=== PATIENT | male | born 1955 | race African-American/Black ===

== ENCOUNTER 2019-03-28 12:59 | Emergency (ER) | payer OTHER ==
[~2019-03-28] VITALS: Ht 172.7 cm; Wt 78.0 kg
[2019-03-28] MEDS ORDERED: SODIUM CHLORIDE 0.9% 1,000 ML IV ONE (14:49)
[2019-03-28] MEDS ORDERED: ASPIRIN 81MG TABLET PO ONE (15:00)
[2019-03-28 15:14] LABS: BASOPHILS % 0.8 % (0.0-2.0); HEMATOCRIT. 42.3 % (42.0-52.0); HEMOGLOBIN. 13.8 g/dL (14.0-18.0); LYMPHOCYTES % 34.6 % (20.0-50.0); MEAN CORPUSCULAR HEMOGLOBIN 29.8 pg (28.0-32.0); MEAN CORPUSCULAR VOLUME 91.1 fL (80.0-94.0); MONOCYTES % 11.3 % (2.0-8.0); NEUTROPHILS % 50.3 % (40.0-76.0); PLATELET 202 x1000/uL (130-400); RED BLOOD CELL COUNT 4.64 mill/uL (4.7-6.1); RED CELL DISTRIBUTION WIDTH 12.4 % (11.6-14.6)
[2019-03-28 15:17] LABS: CHLORIDE 109 mEq/L (98-107)
[2019-03-28 15:19] LABS: INR 1.1
[2019-03-28 18:02] VITALS: BP 130/79
== END 2019-03-28 18:14 | disposition home or self-care (01) ==
LOC: ER 12:59
DX: R07.89 Other chest pain (principal); R55 Syncope and collapse; Z90.49 Acquired absence of other specified parts of digestive tract
CPT/HCPCS: 36415; 71045; 80053; 84484; 85025; 85610; 93005; 96360; 99284; J7030

== ENCOUNTER 2021-06-14 12:22 | Emergency (ER) | payer MEDICARE, OTHER ==
[~2021-06-14] VITALS: Ht 172.7 cm; Wt 83.0 kg
[2021-06-14 21:15] LABS: HEMATOCRIT. 43.7 % (42.0-52.0); HEMOGLOBIN. 14.3 g/dL (14.0-18.0); LYMPHOCYTES % 45.1 % (20.0-50.0); MEAN CORPUSCULAR HEMOGLOBIN 29.8 pg (28.0-32.0); MEAN CORPUSCULAR VOLUME 91.4 fL (80.0-94.0); MEAN PLATELET VOLUME 10.2 fl (7.4-10.4); MONOCYTES % 11.8 % (2.0-8.0); NEUTROPHILS % 39.1 % (40.0-76.0); PLATELET 178 x1000/uL (130-400); RED BLOOD CELL COUNT 4.78 mill/uL (4.7-6.1); RED CELL DISTRIBUTION WIDTH 12.3 % (11.6-14.6)
[2021-06-14 21:21] LABS: CHLORIDE 112 mEq/L (98-107)
[2021-06-14] MEDS ORDERED: ATORVASTATIN CALCIUM 40MG TABLET PO STA (21:28)
[2021-06-14] MEDS ORDERED: ASPIRIN 81MG TABLET PO ONE (21:30)
[2021-06-14 21:33] LABS: *AMPHETAMINES SCREEN URINE NEGATIVE (NEGATIVE); *BARBITURATES SCREEN URINE NEGATIVE (NEGATIVE); *BENZODIAZEPINES SCREEN URINE NEGATIVE (NEGATIVE); *COCAINE SCREEN URINE NEGATIVE (NEGATIVE)
[2021-06-14 21:34] LABS: CANNABINOID URINE SCREEN NEGATIVE (NEGATIVE); METHADONE URINE SCREEN NEGATIVE (NEGATIVE); OPIATES URINE SCREEN NEGATIVE (NEGATIVE); PHENCYCLIDINE URINE SCREEN NEGATIVE (NEGATIVE)
[2021-06-15 02:04] VITALS: BP 153/89
== END 2021-06-15 02:17 | disposition short-term general hospital (02) ==
LOC: EDBD 14:44 → ER 14:44
DX: R07.89 Other chest pain (principal); I10 Essential (primary) hypertension; E78.5 Hyperlipidemia, unspecified; Z90.49 Acquired absence of other specified parts of digestive tract
CPT/HCPCS: 36415; 71045; 80053; 80305; 83880; 84484; 85025; 93005; 99285

== ENCOUNTER 2022-04-11 16:19 | Emergency (ER) | payer MEDICARE ==
[~2022-04-11] VITALS: Ht 170.2 cm; Wt 84.0 kg
[2022-04-11 16:21] VITALS: BP 138/99
[2022-04-11 17:17] LABS: BASOPHILS % 1.1 % (0.0-2.0); EOSINOPHILS % 4.2 % (0.0-5.0); HEMOGLOBIN. 13.6 g/dL (14.0-18.0); LYMPHOCYTES % 35.1 % (20.0-50.0); MEAN CORPUSCULAR HEMOGLOBIN 29.3 pg (28.0-32.0); MEAN CORPUSCULAR VOLUME 90.5 fL (80.0-94.0); MEAN PLATELET VOLUME 10.3 fl (7.4-10.4); NEUTROPHILS % 46.6 % (40.0-76.0); PLATELET 181 x1000/uL (130-400); RED BLOOD CELL COUNT 4.64 mill/uL (4.7-6.1)
[2022-04-11 17:28] LABS: CHLORIDE 109 mEq/L (98-107)
== END 2022-04-11 20:28 | disposition home or self-care (01) ==
LOC: ER 16:19
DX: R07.89 Other chest pain (principal); E78.00 Pure hypercholesterolemia, unspecified; Z90.49 Acquired absence of other specified parts of digestive tract
CPT/HCPCS: 36415; 71045; 80053; 83880; 84484; 85025; 93005; 99285

== ENCOUNTER 2023-01-10 07:33 | Emergency (ER) | payer MEDICARE, MEDICAID ==
[~2023-01-10] VITALS: Ht 177.8 cm; Wt 77.0 kg
[2023-01-10 07:48] VITALS: BP 146/116
[2023-01-10] MEDS ORDERED: ACETAMINOPHEN 325MG TABLET PO ONE (08:00)
[2023-01-10] MEDS ORDERED: METH-653 MT (09:18)
[2023-01-10] MEDS ORDERED: IBUP-2029 MT (09:18)
[2023-01-10] MEDS ORDERED: KETOROLAC 30MG/ML VIAL IM ONE (09:30)
== END 2023-01-10 11:31 | disposition home or self-care (01) ==
LOC: ER 07:33
DX: S33.5XXA Sprain of ligaments of lumbar spine, initial encounter (principal); E78.00 Pure hypercholesterolemia, unspecified; Z90.49 Acquired absence of other specified parts of digestive tract; W01.0XXA Fall on same level from slipping, tripping and stumbling without subsequent striking against object, initial encounter; Y93.89 Activity, other specified; Y92.89 Other specified places as the place of occurrence of the external cause; Y99.8 Other external cause status
CPT/HCPCS: 70450; 72131; 96372; 99285; J1885

== ENCOUNTER 2024-05-08 16:44 | Inpatient (IN) | payer MEDICARE, MEDICAID ==
[~2024-05-08] VITALS: Ht 170.2 cm; Wt 82.6 kg
[~2024-05-08 16:44] MED LIST: IBUP-2029 MT; METH-653 MT
[2024-05-08 19:25] LABS: BASOPHILS % 0.6 % (0.0-2.0); EOSINOPHILS % 1.3 % (0.0-5.0); HEMOGLOBIN. 12.8 g/dL (14.0-18.0); MEAN CORPUSCULAR HEMOGLOBIN 29.7 pg (28.0-32.0); MEAN CORPUSCULAR HGB CONC 32.9 g/dL (31.0-37.0); MEAN CORPUSCULAR VOLUME 90.3 fL (80.0-94.0); MEAN PLATELET VOLUME 9.7 fl (7.4-10.4); MONOCYTES % 6.4 % (2.0-8.0); NEUTROPHILS % 73.7 % (40.0-76.0); PLATELET 213 x1000/uL (130-400); RED BLOOD CELL COUNT 4.32 mill/uL (4.7-6.1); RED CELL DISTRIBUTION WIDTH 12.7 % (11.6-14.6)
[2024-05-08 19:31] LABS: CHLORIDE 109 mEq/L (98-107); POTASSIUM 3.9 mEq/L (3.5-5.1); SODIUM 139 mEq/L (136-145)
[2024-05-08 19:32] LABS: CALCIUM 9.3 mg/dL (8.7-10.4); CARBON DIOXIDE 24 mEq/L (21-32)
[2024-05-08 19:37] LABS: CREATININE 0.7 mg/dL (0.6-1.3); GLUCOSE 81 mg/dL (70-105); UREA NITROGEN BLOOD 6 mg/dL (9-23)
[2024-05-08 19:38] LABS: TROPONIN I HIGH SENSITIVITY 33 ng/L (3.0-53)
[2024-05-08] MEDS ORDERED: MECLIZINE 12.5MG TABLET PO PRN (20:15)
[2024-05-08] MEDS ORDERED: DOCUSATE SODIUM 100MG CAPSULE PO PRN (20:15)
[2024-05-08] MEDS ORDERED: ACETAMINOPHEN 325MG TABLET PO PRN (20:15)
[2024-05-08] MEDS ORDERED: IPRATROPIUM/ALBUTEROL 0.5-3(2.5)MG/3ML NEB HHN PRN (20:15)
[2024-05-08] MEDS ORDERED: CLONIDINE 0.1MG TABLET PO PRN (20:15)
[2024-05-08] MEDS ORDERED: ONDANSETRON HCL 4MG/2ML INJ IV PRN (20:15)
[2024-05-08] MEDS ORDERED: MAGNESIUM/ALUMINUM HYDROXIDE/SIMETHICONE 30ML UDC PO PRN (20:15)
[2024-05-08] MEDS ORDERED: ATROPINE SULFATE 1MG/ML VIAL IV PRN (20:15)
[2024-05-08] MEDS: FAMOTIDINE 20MG TABLET PO SCH (21:00)
[2024-05-08 23:25] VITALS: BP 134/97; PULSE 55; RESP 16; TEMP 98
[2024-05-09] VITALS (7 sets, daily range): BP systolic 112–143; BP diastolic 62–81; PULSE 50–67; RESP 12–18; TEMP 97.9–98.3
[2024-05-09 04:05] LABS: CLARITY URINE CLOUDY (CLEAR); COLOR URINE YELLOW (YELLOW); GLUCOSE URINE NEGATIVE (NEGATIVE); KETONES URINE NEGATIVE (NEGATIVE); LEUKOCYTE ESTERASE URINE NEGATIVE (NEGATIVE); NITRITE URINE NEGATIVE (NEGATIVE); OCCULT BLOOD URINE NEGATIVE (NEGATIVE); PROTEIN URINE NEGATIVE (NEGATIVE); SPECIFIC GRAVITY URINE 1.013 (1.005-1.030)
[2024-05-09 04:10] LABS: *AMPHETAMINES SCREEN URINE NEGATIVE (NEGATIVE); *BARBITURATES SCREEN URINE NEGATIVE (NEGATIVE); *BENZODIAZEPINES SCREEN URINE NEGATIVE (NEGATIVE); *COCAINE SCREEN URINE NEGATIVE (NEGATIVE); CANNABINOID URINE SCREEN NEGATIVE (NEGATIVE); ECSTASY MDMA SCREEN URINE NEGATIVE (NEGATIVE); METHADONE URINE SCREEN NEGATIVE (NEGATIVE); OPIATES URINE SCREEN NEGATIVE (NEGATIVE); PHENCYCLIDINE URINE SCREEN NEGATIVE (NEGATIVE)
[2024-05-09 04:40] LABS: BACTERIA URINE TRACE; RBC URINE 0-2 /hpf (0-2); SQUAMOUS EPITHELIAL CELL URINE RARE /lpf (RARE/1+); WBC URINE 0-2 /hpf (0-2)
[2024-05-09 07:23] LABS: BASOPHILS % 0.9 % (0.0-2.0); EOSINOPHILS % 2.5 % (0.0-5.0); HEMATOCRIT. 39.1 % (42.0-52.0); HEMOGLOBIN. 12.7 g/dL (14.0-18.0); LYMPHOCYTES % 39.8 % (20.0-50.0); MEAN CORPUSCULAR HEMOGLOBIN 29.5 pg (28.0-32.0); MEAN CORPUSCULAR HGB CONC 32.5 g/dL (31.0-37.0); MEAN CORPUSCULAR VOLUME 90.6 fL (80.0-94.0); MEAN PLATELET VOLUME 9.5 fl (7.4-10.4); MONOCYTES % 10.8 % (2.0-8.0); PLATELET 191 x1000/uL (130-400); RED BLOOD CELL COUNT 4.32 mill/uL (4.7-6.1); RED CELL DISTRIBUTION WIDTH 12.2 % (11.6-14.6); WHITE BLOOD COUNT 4.3 x1000/uL (4.5-11.0)
[2024-05-09 07:30] LABS: CALCIUM 9.4 mg/dL (8.7-10.4); CARBON DIOXIDE 25 mEq/L (21-32); CHLORIDE 110 mEq/L (98-107); POTASSIUM 3.8 mEq/L (3.5-5.1); SODIUM 140 mEq/L (136-145)
[2024-05-09 07:36] LABS: CREATININE 0.7 mg/dL (0.6-1.3); GLUCOSE 89 mg/dL (70-105); TRIGLYCERIDE 58 mg/dL (0-150); UREA NITROGEN BLOOD 6 mg/dL (9-23)
[2024-05-09 07:37] LABS: LDL CHOLESTEROL 107 mg/dL (5-100)
[2024-05-09 07:38] LABS: CHOLESTEROL 153 mg/dL (<200); HDL CHOLESTEROL 34 mg/dL (>55)
[2024-05-09 07:39] LABS: T4 FREE 1.22 ng/dL (0.89-1.76); THYROID STIMULATING HORMONE 0.85 uIU/mL (0.55-4.78)
[2024-05-09] MEDS ORDERED: HYDRALAZINE HCL 10MG TABLET PO PRN (11:15)
[2024-05-09] MEDS: ATORVASTATIN CALCIUM 10MG TABLET PO SCH (21:09)
[2024-05-10] VITALS: BP 128/74; PULSE 55; RESP 17; TEMP 97.5
[2024-05-10 04:06] VITALS: BP 135/76; PULSE 85; RESP 18; TEMP 97.8
[2024-05-10 06:31] LABS: BASOPHILS % 0.9 % (0.0-2.0); EOSINOPHILS % 3.6 % (0.0-5.0); HEMATOCRIT. 39.3 % (42.0-52.0); HEMOGLOBIN. 12.6 g/dL (14.0-18.0); LYMPHOCYTES % 38.9 % (20.0-50.0); MEAN CORPUSCULAR HEMOGLOBIN 29.1 pg (28.0-32.0); MEAN CORPUSCULAR VOLUME 90.9 fL (80.0-94.0); MEAN PLATELET VOLUME 9.8 fl (7.4-10.4); MONOCYTES % 10.4 % (2.0-8.0); NEUTROPHILS % 46.2 % (40.0-76.0); PLATELET 191 x1000/uL (130-400); RED BLOOD CELL COUNT 4.32 mill/uL (4.7-6.1); RED CELL DISTRIBUTION WIDTH 12.8 % (11.6-14.6); WHITE BLOOD COUNT 5.3 x1000/uL (4.5-11.0)
[2024-05-10 06:48] LABS: CARBON DIOXIDE 22 mEq/L (21-32); CHLORIDE 110 mEq/L (98-107); POTASSIUM 3.9 mEq/L (3.5-5.1); SODIUM 139 mEq/L (136-145)
[2024-05-10 06:49] LABS: CALCIUM 9.2 mg/dL (8.7-10.4)
[2024-05-10 06:51] LABS: TROPONIN I HIGH SENSITIVITY 37 ng/L (3.0-53)
[2024-05-10 06:54] LABS: CREATININE 0.7 mg/dL (0.6-1.3); GLUCOSE 84 mg/dL (70-105); UREA NITROGEN BLOOD 10 mg/dL (9-23)
[2024-05-10 08:00] VITALS: BP 124/70; PULSE 51; RESP 12; TEMP 98.1
[2024-05-10] MEDS: ASPIRIN 81MG EC TABLET PO SCH (08:31)
[2024-05-10] MEDS: MAGNESIUM OXIDE 400MG TABLET PO SCH (08:31)
[2024-05-10] MEDS: AMLODIPINE 2.5MG TABLET PO SCH (08:42)
[2024-05-10 12:00] VITALS: BP 123/83; PULSE 50; RESP 12; TEMP 98
[2024-05-10] MEDS ORDERED: ATOR10TA PO (14:32)
[2024-05-10] MEDS ORDERED: FAMO20TA8 PO (14:32)
[2024-05-10] MEDS ORDERED: AMLO2.5T45 PO (14:32)
[2024-05-10] MEDS ORDERED: ASPI-1406 PO (14:32)
[2024-05-10 15:29] VITALS: BP 121/73; PULSE 54; TEMP 98; O2SAT 97
== END 2024-05-10 17:26 | disposition home or self-care (01) | DRG 309 ==
LOC: ER 16:55 → 3WST 19:47
PROVIDERS: ADMIT Hospitalist; ATTEND Hospitalist
DX: R00.1 Bradycardia, unspecified (principal); I16.9 Hypertensive crisis, unspecified; D63.8 Anemia in other chronic diseases classified elsewhere; I10 Essential (primary) hypertension; G89.4 Chronic pain syndrome; F41.9 Anxiety disorder, unspecified; E78.00 Pure hypercholesterolemia, unspecified; N40.0 Benign prostatic hyperplasia without lower urinary tract symptoms; M48.061 Spinal stenosis, lumbar region without neurogenic claudication; Z98.1 Arthrodesis status; Z82.49 Family history of ischemic heart disease and other diseases of the circulatory system; Z79.82 Long term (current) use of aspirin
CPT/HCPCS: 36415; 71045; 80048; 80061; 80305; 81003; 83735; 83880; 84439; 84443; 84484; 85025; 85379; 93005; 93306; 93970; 97162; 97535; 99285